=== PATIENT | male | born 1985 | race Native Hawaiian/Other Pacific Islander ===

== ENCOUNTER 2024-06-07 12:52 | Emergency (ER) | payer BC, OTHER ==
[~2024-06-07] VITALS: Ht 167.6 cm; Wt 63.5 kg
[2024-06-07 13:06] VITALS: O2SAT 98
[2024-06-07] MEDS ORDERED: AZIT250T13 PO (14:50)
[2024-06-07] MEDS ORDERED: GUAI5SYR4 PO (14:50)
[2024-06-07] MEDS ORDERED: ALBU6.7H9 INH (14:50)
== END 2024-06-07 15:03 | disposition home or self-care (01) ==
LOC: ER 12:52
DX: J45.909 Unspecified asthma, uncomplicated (principal); Z79.899 Other long term (current) drug therapy
CPT/HCPCS: 71045; A4606; A4663